=== PATIENT | female | born 1975 | race Caucasian/White ===

== ENCOUNTER 2018-01-03 08:00 | Outpatient (CLI) | payer BC ==
[2018-01-03 14:11] LABS: BASOPHILS # (AUTO) 0.1 10^3/uL (0.0-0.1); BASOPHILS % (AUTO) 1.3 %; EOSINOPHILS # (AUTO) 0.2 10^3/uL (0.0-0.7); EOSINOPHILS % (AUTO) 1.9 %; HGB - HEMOGLOBIN 14.6 g/dL (12.0-16.0); LYMPHOCYTES % (AUTO) 24.6 %; MEAN CORPUSCULAR HEMOGLOBIN 30.5 pg (27.0-31.0); MEAN CORPUSCULAR HGB CONC 32.8 g/dL (32.0-36.0); MEAN CORPUSCULAR VOLUME 93.1 fL (81.0-99.0); MEAN PLATELET VOLUME 8.9 fL (7.9-10.8); MONOCYTES # (AUTO) 0.6 10^3/uL (0.0-1.0); MONOCYTES % (AUTO) 7.6 %; NEUTROPHILS # (AUTO) 5.2 10^3/uL (1.5-6.6); NEUTROPHILS % (AUTO) 64.6 %; PLT - PLATELET COUNT 204 10^3/uL (130-450); RED BLOOD COUNT 4.78 10^6/uL (4.20-5.40); RED CELL DISTRIBUTION WIDTH 13.4 % (12.0-15.0); WHITE BLOOD COUNT 8.1 x10^3/uL (4.8-10.8)
[2018-01-03 14:31] LABS: ALBUMIN 4.4 g/dL (3.2-5.5); ALBUMIN/GLOBULIN RATIO 1.5 (1.0-2.2); ALKALINE PHOSPHATASE 39 IU/L (42-121); ALT ALANINE AMINOTRANSFERASE 17 IU/L (10-60); AST ASPARTATE AMINOTRANSFERASE 24 IU/L (10-42); BILIRUBIN,TOTAL 0.7 mg/dL (0.2-1.0); BUN - BLOOD UREA NITROGEN 19 mg/dL (6-20); CALCIUM 8.8 mg/dL (8.5-10.3); CARBON DIOXIDE - CO2 27 mmol/L (21-32); CHLORIDE 101 mmol/L (101-111); CHOL/HDL RATIO 1.8 (<4.4); CHOLESTEROL 140 mg/dL; CREATININE 0.7 mg/dL (0.4-1.0); GFR - MDRD 93 (>89); GLUCOSE 80 mg/dL (70-100); HDL CHOLESTEROL 77 mg/dL; LDL CHOLESTEROL,CALCULATED 53 mg/dL; LDL/HDL RATIO 0.7 (<4.4); SODIUM 135 mmol/L (135-145); TOTAL PROTEIN 7.3 g/dL (6.7-8.2); VLDL CHOLESTEROL 10 mg/dL
== END 2018-01-03 23:59 | disposition home or self-care (01) ==
LOC: LAB.R 08:00
PROVIDERS: ATTEND Nurse Practitioner Primary Care
DX: Z00.00 Encounter for general adult medical examination without abnormal findings (principal); Z13.1 Encounter for screening for diabetes mellitus; Z13.29 Encounter for screening for other suspected endocrine disorder; Z13.6 Encounter for screening for cardiovascular disorders
CPT/HCPCS: 80053; 80061; 83721; 84443; 85025

== ENCOUNTER 2018-02-01 09:17 | Outpatient (CLI) | payer BC | END 2018-02-01 09:18 | disposition home or self-care (01) | LOC: DI 09:17 | PROVIDERS: ATTEND Nurse Practitioner Primary Care | DX: Z13.6 Encounter for screening for cardiovascular disorders (principal); Z82.49 Family history of ischemic heart disease and other diseases of the circulatory system | CPT/HCPCS: 93306 ==

== ENCOUNTER 2019-04-02 14:28 | Outpatient (CLI) | payer BC ==
--- NOTE | 2019-04-03 18:04 | XRAY Report ---
Reason: L FOOT PAIN Procedure Date: 04/02/2019 Accession Number: [id number] / [id number] Procedure: XR - Foot 3 View LT CPT Code: FULL RESULT: EXAM: LEFT FOOT RADIOGRAPHY EXAM DATE: 04/02/2019 02:50 PM. CLINICAL HISTORY: Left foot pain. COMPARISON: XR FOOT COMPLETE MIN 3 VIEWS 11/22/2007 2:58 PM. TECHNIQUE: 3 views. FINDINGS: Bones: Previous fracture repairs of the second and third metatarsals. Hardware appears unremarkable. No new fracture seen. Joints: Normal. No subluxations. Soft Tissues: Normal. No soft tissue swelling. IMPRESSION: 1. No acute left foot fracture or malalignment. 2. Previous fracture repairs of the second and third metatarsals. [facility]
== END 2019-04-02 14:29 | disposition home or self-care (01) ==
LOC: DI 14:28
PROVIDERS: ATTEND Physician Assistant
DX: M79.672 Pain in left foot (principal)